=== PATIENT | male | born 1955 | race Caucasian/White ===

== ENCOUNTER 2019-12-13 19:57 | Inpatient (IN) | payer SELFPAY ==
[~2019-12-13] VITALS: Ht 185.4 cm; Wt 72.7 kg
[2019-12-13 20:43] LABS: BASO % 0 % (0-3); EOS # 0.1 x10^3/uL (0.0-0.7); EOS % 1 % (0-3); HEMATOCRIT 33.4 % (39.0-53.0); HEMOGLOBIN 11.6 g/dL (13.0-17.5); LYMPH # 0.9 x10^3/uL (1.0-4.8); LYMPH % 11 % (24-48); MEAN CORPUSCULAR HEMOGLOBIN 32 pg (25-35); MEAN CORPUSCULAR HGB CONC 35 g/dL (31-37); MEAN CORPUSCULAR VOLUME 92 fL (79-100); MONO # 0.8 x10^3/uL (0.0-1.1); MONO % 10 % (0-9); NEUT # 6.5 x10^3/uL (1.8-7.7); NEUT % 78 % (31-73); PLATELET COUNT 389 x10^3/uL (140-400); RED BLOOD COUNT 3.62 x10^6/uL (4.30-5.70); RED CELL DISTRIBUTION WIDTH 11.9 % (11.5-14.5); WHITE BLOOD COUNT 8.3 x10^3/uL (4.0-11.0)
[2019-12-13] MEDS ORDERED: IPRATRPIUM/ALBUTEROL 0.5/2.5MG 3 ML NEBU. NEB ONE (21:00)
[2019-12-13 21:01] LABS: ALBUMIN 2.4 g/dL (3.4-5.0); ALBUMIN/GLOBULIN RATIO 0.6 (1.0-1.7); CALCIUM 8.3 mg/dL (8.5-10.1); CREATININE 1.1 mg/dL (0.7-1.3); GFR 67.6; TOTAL BILIRUBIN 0.4 mg/dL (0.2-1.0); TOTAL PROTEIN 6.6 g/dL (6.4-8.2)
[2019-12-13 21:03] LABS: POTASSIUM 2.9 mmol/L (3.5-5.1)
--- NOTE | 2019-12-13 21:05 | RAD ---
PORTABLE CHEST 1V INDICATION: Dyspnea. COMPARISON STUDY: None. FINDINGS: Lungs: Normal lung volume. Patchy bilateral consolidation. The tracheobronchial tree and hilar structures are normal. Pleura: No pleural effusion or pneumothorax. Heart and Mediastinum: The cardiomediastinal silhouette is normal. Mild tortuosity of the thoracic aorta. IMPRESSION: Patchy bilateral consolidations, concerning for an infectious/inflammatory process or edema. Electronically signed by: Vipul Chaparro MD (12/13/2019 9:02 PM) [facility]
--- NOTE | 2019-12-13 21:14 | PHYS DOC ---
Past Medical History Past Medical History: No Pertinent History Past Surgical History: No Surgical History Smoking Status: Never Smoker Alcohol Use: None General Adult EDM: Chief Complaint: SHORTNESS OF BREATH HPI: HPI: Patient is a 64 year old male who presents via EMS with reports of shortness of breath. Patient was just released from [facility] yesterday after serving a sentence. On December 06, patient tested positive for COVID-19. Patient states that over the last 24 hours shortness of breath has been getting worse. He states that he has been following his oxygen saturations at home and they had dropped into the upper 80s. EMS reports an O2 sat of 91% on room air upon their arrival. [] Review of Systems: Review of Systems: Constitutional: Denies fever or chills. [] Respiratory: Positive cough and shortness of breath. [] Cardiovascular: Denies chest pain or edema. [] GI: Denies abdominal pain, nausea, vomiting or diarrhea. [] Neurologic: Denies headache, focal weakness or sensory changes. [] A full 10 point review of systems has been reviewed and is otherwise negative. Heart Score: Risk Factors: Risk Factors: DM, Current or recent (<one month) smoker, HTN, HLP, family history of CAD, obesity. Risk Scores: Score 0 - 3: 2.5% MACE over next 6 weeks - Discharge Home Score 4 - 6: 20.3% MACE over next 6 weeks - Admit for Clinical Observation Score 7 - 10: 72.7% MACE over next 6 weeks - Early Invasive Strategies Current Medications: Current Medications Medications (Trade) Dose Ordered Sig/Eduardo Start Time Stop Time Status Last Admin Dose Admin Albuterol/ Ipratropium (Duoneb) 3 ml 1X ONCE 12/13/19 21:00 12/13/19 21:01 DC Allergies: Allergies: Allergies Coded Allergies Type Severity Reaction Last Updated Verified No Known Drug Allergies 12/13/19 No Physical Exam: PE: Constitutional: Well developed, well nourished, no acute distress, non-toxic appearance. [] HENT: Normocephalic, atraumatic, bilateral external ears normal, oropharynx moist, no oral exudates, nose normal. [] Eyes: PERRLA, EOMI, conjunctiva normal, no discharge. [] Neck: Normal range of motion, no tenderness, supple. No stridor is noted. [] Cardiovascular: Regular rate and rhythm [] Lungs & Thorax: Bilateral breath sounds clear to auscultation. No wheezes or rhonchi. [] Abdomen: Bowel sounds normal, soft, no tenderness, no masses, no pulsatile masses. [] Skin: Warm, dry, no erythema, no rash. [] Extremities: No tenderness, no cyanosis, no clubbing, ROM intact, no edema. [] Current Patient Data: Labs: Laboratory Tests Test 12/13/19 20:20 White Blood Count 8.3 x10^3/uL (4.0-11.0) Red Blood Count 3.62 x10^6/uL (4.30-5.70) L Hemoglobin 11.6 g/dL (13.0-17.5) L Hematocrit 33.4 % (39.0-53.0) L Mean Corpuscular Volume 92 fL (79-100) Mean Corpuscular Hemoglobin 32 pg (25-35) Mean Corpuscular Hemoglobin Concent 35 g/dL (31-37) Red Cell Distribution Width 11.9 % (11.5-14.5) Platelet Count 389 x10^3/uL (140-400) Neutrophils (%) (Auto) 78 % (31-73) H Lymphocytes (%) (Auto) 11 % (24-48) L Monocytes (%) (Auto) 10 % (0-9) H Eosinophils (%) (Auto) 1 % (0-3) Basophils (%) (Auto) 0 % (0-3) Neutrophils # (Auto) 6.5 x10^3/uL (1.8-7.7) Lymphocytes # (Auto) 0.9 x10^3/uL (1.0-4.8) L Monocytes # (Auto) 0.8 x10^3/uL (0.0-1.1) Eosinophils # (Auto) 0.1 x10^3/uL (0.0-0.7) Basophils # (Auto) 0.0 x10^3/uL (0.0-0.2) Sodium Level 139 mmol/L (136-145) Potassium Level 2.9 mmol/L (3.5-5.1) *L Chloride Level 101 mmol/L (98-107) Carbon Dioxide Level 26 mmol/L (21-32) Anion Gap 12 (6-14) Blood Urea Nitrogen 14 mg/dL (8-26) Creatinine 1.1 mg/dL (0.7-1.3) Estimated GFR (Cockcroft-Gault) 67.6 BUN/Creatinine Ratio 13 (6-20) Glucose Level 120 mg/dL (70-99) H Calcium Level 8.3 mg/dL (8.5-10.1) L Total Bilirubin 0.4 mg/dL (0.2-1.0) Aspartate Amino Transferase (AST) 69 U/L (15-37) H Alanine Aminotransferase (ALT) 61 U/L (16-63) Alkaline Phosphatase 82 U/L (46-116) Troponin I Quantitative < 0.017 ng/mL (0.000-0.055) AI-Yvg-H-Type Natriuretic Peptide 887 pg/mL (0-124) H Total Protein 6.6 g/dL (6.4-8.2) Albumin 2.4 g/dL (3.4-5.0) L Albumin/Globulin Ratio 0.6 (1.0-1.7) L Laboratory Tests 12/13/19 20:20 Laboratory Tests 12/13/19 20:20 Vital Signs: Vital Signs Date Time Temp Pulse Resp B/P (MAP) Pulse Ox O2 Delivery O2 Flow Rate FiO2 12/13/19 20:23 99.8 104 17 105/96 (99) 96 Nasal Cannula 2.0 99.8 EKG: EKG: [] Radiology/Procedures: Radiology/Procedures: [] Impression: PROCEDURE: PORTABLE CHEST 1V PORTABLE CHEST 1V INDICATION: Dyspnea. COMPARISON STUDY: None. FINDINGS: Lungs: Normal lung volume. Patchy bilateral consolidation. The tracheobronchial tree and hilar structures are normal. Pleura: No pleural effusion or pneumothorax. Heart and Mediastinum: The cardiomediastinal silhouette is normal. Mild tortuosity of the thoracic aorta. IMPRESSION: Patchy bilateral consolidations, concerning for an infectious/inflammatory process or edema. Electronically signed by: Vipul Chaparro MD (12/13/2019 9:02 PM) [facility] Course & Med Decision Making: Course & Med Decision Making Pertinent Labs and Imaging studies reviewed. (See chart for details) [] Dragon Disclaimer: Dragon Disclaimer: This electronic medical record was generated, in whole or in part, using a voice recognition dictation system. Departure Departure Impression: Primary Impression: Pneumonia Qualified Codes: J18.9 - Pneumonia, unspecified organism Disposition: ADMITTED INPATIENT Admitting Physician: PROMISE Condition: IMPROVED UVALDO RUSSELL Jr. DO December 13, 2019 21:14
[2019-12-13 21:38] LABS: BILIRUBIN,URINE NEGATIVE (NEG); CLARITY,URINE CLEAR; COLOR,URINE YELLOW; NITRITE,URINE NEGATIVE (NEG); PROTEIN,URINE 100 mg/dL (NEG-TRACE); UROBILINOGEN,URINE 0.2 mg/dL (0.2 mg/dL)
[2019-12-13 21:40] LABS: AMORPHOUS SEDIMENT,UR PRESENT /HPF; BACTERIA,URINE 0 /HPF (0-FEW); SQUAMOUS EPITHELIAL CELL,UR FEW /LPF
[2019-12-13] MEDS ORDERED: POTASSIUM CHLORIDE 20 MEQ TABLET.ER. PO ONE (22:00)
[2019-12-13] MEDS ORDERED: MORPHINE SULFATE 2 MG/ML VIAL. IV PRN (22:15)
[2019-12-13] MEDS ORDERED: ONDANSETRON PF 4 MG/2 ML VIAL. IV PRN (22:15)
[2019-12-13] MEDS ORDERED: cefTRIAXone IV Push 1 GM VIAL. IVP ONE (22:30)
[2019-12-13] MEDS ORDERED: AZITHROMYCIN 250 MG TABLET. PO ONE (22:30)
[2019-12-14] VITALS (7 sets, daily range): BP systolic 143–161; BP diastolic 78–97
[2019-12-14 04:48] LABS: BASO % 0 % (0-3); EOS # 0.1 x10^3/uL (0.0-0.7); EOS % 1 % (0-3); HEMATOCRIT 32.7 % (39.0-53.0); HEMOGLOBIN 11.4 g/dL (13.0-17.5); LYMPH # 0.8 x10^3/uL (1.0-4.8); LYMPH % 11 % (24-48); MEAN CORPUSCULAR HEMOGLOBIN 32 pg (25-35); MEAN CORPUSCULAR HGB CONC 35 g/dL (31-37); MEAN CORPUSCULAR VOLUME 92 fL (79-100); MONO # 0.7 x10^3/uL (0.0-1.1); MONO % 10 % (0-9); NEUT # 5.4 x10^3/uL (1.8-7.7); NEUT % 78 % (31-73); PLATELET COUNT 365 x10^3/uL (140-400); RED BLOOD COUNT 3.57 x10^6/uL (4.30-5.70); RED CELL DISTRIBUTION WIDTH 11.9 % (11.5-14.5); WHITE BLOOD COUNT 6.9 x10^3/uL (4.0-11.0)
[2019-12-14 05:01] LABS: CALCIUM 7.8 mg/dL (8.5-10.1); CREATININE 1.1 mg/dL (0.7-1.3); GFR 67.6; POTASSIUM 3.4 mmol/L (3.5-5.1)
[2019-12-14] MEDS: ACETAMINOPHEN 325 MG TABLET. PO PRN ×2 (07:55→16:27)
[2019-12-14] MEDS ORDERED: POTASSIUM CHLORIDE 20 MEQ TABLET.ER. PO ONE (09:15)
[2019-12-14] MEDS ORDERED: MAGNESIUM SULFATE 2GM 50 ML IV ONE (09:30)
[2019-12-14] MEDS: AZITHROMYCIN 250 MG TABLET. PO SCH (10:09)
[2019-12-14] MEDS: ASCORBIC ACID 500 MG TABLET PO SCH (10:09)
[2019-12-14] MEDS: CHOLECALCIFEROL (VITAMIN D3) 5,000 UNIT CAPSULE PO SCH (10:09)
[2019-12-14] MEDS: ZINC SULFATE 220 MG CAPSULE. PO SCH (10:09)
--- NOTE | 2019-12-14 14:39 | PDOC1 ---
History and Physical Date of Admission Date of Admission DATE: 12/14/19 TIME: 14:35 Source Source: Chart review, Patient History of Present Illness History of Present Illness Mr. Sims, is a 64 year old male admit for hypoxia and came by ambulance to ER for acutely worsening shortness of breath. Patient was just released from [facility] yesterday after serving a sentence, he had been having symptoms for almost 2 weeks, was diagnosed with COVID-19 on December 06, at the [facility], sent home [place], then shortness of breath was markely getting worse. He states that he has been following his oxygen saturations at home and they had dropped into the upper 80s. he was unable to care for himself, had marked dyspnea and weakness. Past Medical History Cardiovascular: No pertinent hx Pulmonary: No pertinent hx GI: No pertinent hx Hepatobiliary: No pertinent hx Psych: No pertinent hx Past Surgical History Past Surgical History: No pertinent history Family History Family History: No Significant Social History Smoke: No ALCOHOL: none Current Problem List Problem List Problems Medical Problems: (1) Pneumonia Status: Acute Current Medications Current Medications Current Medications Albuterol/ Ipratropium (Duoneb) 3 ml 1X ONCE NEB ; Start 12/13/19 at 21:00; Stop 12/13/19 at 21:01; Status DC Potassium Chloride (Klor-Con) 40 meq 1X ONCE PO Last administered on 12/13/19at 22:29; Start 12/13/19 at 22:00; Stop 12/13/19 at 22:01; Status DC Ceftriaxone Sodium (Rocephin) 1 gm 1X ONCE IVP Last administered on 12/13/19at 22:29; Start 12/13/19 at 22:30; Stop 12/13/19 at 22:31; Status DC Azithromycin (Zithromax) 500 mg 1X ONCE PO Last administered on 12/13/19at 22:29; Start 12/13/19 at 22:30; Stop 12/13/19 at 22:31; Status DC Ondansetron HCl (Zofran) 4 mg PRN Q8HRS PRN IV NAUSEA/VOMITING 1ST CHOICE; Start 12/13/19 at 22:15; Stop 12/14/19 at 22:14 Morphine Sulfate (Morphine Sulfate) 2 mg PRN Q2HR PRN IV SEVERE PAIN 7-10; Start 12/13/19 at 22:15; Stop 12/14/19 at 22:14 Acetaminophen (Tylenol) 650 mg PRN Q4HRS PRN PO FEVER > 100.3'F Last administered on 12/14/19at 07:55; Start 12/13/19 at 22:15; Stop 12/14/19 at 22:14 Potassium Chloride (Klor-Con) 40 meq 1X ONCE PO Last administered on 12/14/19at 10:10; Start 12/14/19 at 09:15; Stop 12/14/19 at 09:29; Status DC Ascorbic Acid (Vitamin C) 500 mg DAILY PO Last administered on 12/14/19at 10:09; Start 12/14/19 at 09:15 Zinc Sulfate (Orazinc) 220 mg DAILY PO Last administered on 12/14/19at 10:09; Start 12/14/19 at 09:15 Vitamin D (Vitamin D3) 5,000 unit DAILY PO Last administered on 12/14/19at 10:09; Start 12/14/19 at 09:30 Azithromycin (Zithromax) 250 mg DAILY PO Last administered on 12/14/19at 10:09; Start 12/14/19 at 10:00 Magnesium Sulfate 50 ml @ 25 mls/hr 1X ONCE IV Last administered on 12/14/19at 10:13; Start 12/14/19 at 09:30; Stop 12/14/19 at 11:35; Status DC Enoxaparin Sodium (Lovenox Per Pharmacy Prophylaxis Dosing) 1 each PRN DAILY PRN MC SEE COMMENTS; Start 12/14/19 at 14:15 Enoxaparin Sodium (Lovenox 40mg Syringe) 40 mg Q24H SQ ; Start 12/14/19 at 15:00 Active Scripts Active Reported No Known Medications Prior To Admisstion (Info) Each 1 Each MC 1X Allergies Allergies: Coded Allergies: No Known Drug Allergies (Unverified , 12/13/19) PT DENIES ALLERGIES ROS General: YES: Chills, Fatigue, Malaise; No: Night Sweats, Appetite, Other PSYCHOLOGICAL ROS: YES: Anxiety, Sleep disturbances Eyes: No Blurry vision, No Decreased vision, No Double vision, No Dry eyes, No Excessive tearing, No Eye Pain, No Itchy Eyes, No Loss of vision, No Photophobia, No Scotomata, No Uses contacts, No Uses glasses, No Other HEENT: YES: [place]acaches Respiratory: YES: Cough, Shortness of breath, SOB with excertion Cardiovascular: No Chest Pain, No Palpitations, No Orthopnea, No Paroxysmal Noc. Dyspnea, No Edema, No Lt Headedness, No Other Gastrointestinal: Yes Nausea; No Vomiting, No Abdominal Pain, No Diarrhea, No Constipation, No Melena, No Hematochezia, No Other Genitourinary: No Dysuria, No Frequency, No Incontinence, No Hematuria, No Retention, No Discharge, No Urgency, No Pain, No Flank Pain, No Other, No , No , No , No , No , No , No Musculoskeletal: Yes Joint Stiffness, Yes Muscular Weakness Neurological: No Behavorial Changes, No Bowel/Bladder ControlChng, No Confusion, No Dizziness, No Gait Disturbance, No Headaches, No Impaired Coord/balance, No Memory Loss, No Numbness/Tingling, No Seizures, No Speech Problems, No Tremors, No Visual Changes, No Weakness, No Other Skin: Yes Dry Skin; No Eczema, No Hair Changes, No Lumps, No Mole Changes, No Mottling, No Nail Changes, No Pruritus, No Rash, No Skin Lesion Changes, No Other, No Acne Physical Exam General: Alert, Oriented X3, No acute distress HEENT: Atraumatic, PERRLA, EOMI, Mucous membr. moist/pink Lungs: Normal air movement Heart: no gallops, no murmurs Extremities: No edema, Normal pulses Neuro: Normal tone Psych/Mental Status: Mental status NL, Mood NL Vitals Vitals Vital Signs Date Time Temp Pulse Resp B/P (MAP) Pulse Ox O2 Delivery O2 Flow Rate FiO2 12/14/19 10:39 98.1 103 20 146/86 (106) 92 Nasal Cannula 2.0 98.1 Labs Labs Laboratory Tests Test 12/13/19 20:20 12/13/19 21:30 12/14/19 04:30 White Blood Count 8.3 x10^3/uL (4.0-11.0) 6.9 x10^3/uL (4.0-11.0) Red Blood Count 3.62 x10^6/uL (4.30-5.70) 3.57 x10^6/uL (4.30-5.70) Hemoglobin 11.6 g/dL (13.0-17.5) 11.4 g/dL (13.0-17.5) Hematocrit 33.4 % (39.0-53.0) 32.7 % (39.0-53.0) Mean Corpuscular Volume 92 fL (79-100) 92 fL (79-100) Mean Corpuscular Hemoglobin 32 pg (25-35) 32 pg (25-35) Mean Corpuscular Hemoglobin Concent 35 g/dL (31-37) 35 g/dL (31-37) Red Cell Distribution Width 11.9 % (11.5-14.5) 11.9 % (11.5-14.5) Platelet Count 389 x10^3/uL (140-400) 365 x10^3/uL (140-400) Neutrophils (%) (Auto) 78 % (31-73) 78 % (31-73) Lymphocytes (%) (Auto) 11 % (24-48) 11 % (24-48) Monocytes (%) (Auto) 10 % (0-9) 10 % (0-9) Eosinophils (%) (Auto) 1 % (0-3) 1 % (0-3) Basophils (%) (Auto) 0 % (0-3) 0 % (0-3) Neutrophils # (Auto) 6.5 x10^3/uL (1.8-7.7) 5.4 x10^3/uL (1.8-7.7) Lymphocytes # (Auto) 0.9 x10^3/uL (1.0-4.8) 0.8 x10^3/uL (1.0-4.8) Monocytes # (Auto) 0.8 x10^3/uL (0.0-1.1) 0.7 x10^3/uL (0.0-1.1) Eosinophils # (Auto) 0.1 x10^3/uL (0.0-0.7) 0.1 x10^3/uL (0.0-0.7) Basophils # (Auto) 0.0 x10^3/uL (0.0-0.2) 0.0 x10^3/uL (0.0-0.2) Sodium Level 139 mmol/L (136-145) 141 mmol/L (136-145) Potassium Level 2.9 mmol/L (3.5-5.1) 3.4 mmol/L (3.5-5.1) Chloride Level 101 mmol/L (98-107) 105 mmol/L (98-107) Carbon Dioxide Level 26 mmol/L (21-32) 28 mmol/L (21-32) Anion Gap 12 (6-14) 8 (6-14) Blood Urea Nitrogen 14 mg/dL (8-26) 11 mg/dL (8-26) Creatinine 1.1 mg/dL (0.7-1.3) 1.1 mg/dL (0.7-1.3) Estimated GFR (Cockcroft-Gault) 67.6 67.6 BUN/Creatinine Ratio 13 (6-20) Glucose Level 120 mg/dL (70-99) 97 mg/dL (70-99) Calcium Level 8.3 mg/dL (8.5-10.1) 7.8 mg/dL (8.5-10.1) Total Bilirubin 0.4 mg/dL (0.2-1.0) Aspartate Amino Transf (AST/SGOT) 69 U/L (15-37) Alanine Aminotransferase (ALT/SGPT) 61 U/L (16-63) Alkaline Phosphatase 82 U/L (46-116) Troponin I Quantitative < 0.017 ng/mL (0.000-0.055) IF-Wgt-L-Type Natriuretic Peptide 887 pg/mL (0-124) Total Protein 6.6 g/dL (6.4-8.2) Albumin 2.4 g/dL (3.4-5.0) Albumin/Globulin Ratio 0.6 (1.0-1.7) Urine Collection Type Unknown Urine Color Yellow Urine Clarity Clear Urine pH 6.0 (<5.0-8.0) Urine Specific [place] 1.010 (1.000-1.030) Urine Protein 100 mg/dL (NEG-TRACE) Urine Glucose (UA) Negative mg/dL (NEG) Urine Ketones (Stick) Negative mg/dL (NEG) Urine Blood Small (NEG) Urine Nitrite Negative (NEG) Urine Bilirubin Negative (NEG) Urine Urobilinogen Dipstick 0.2 mg/dL (0.2 mg/dL) Urine Leukocyte Esterase Negative (NEG) Urine RBC 3-5 /HPF (0-2) Urine WBC 1-4 /HPF (0-4) Urine Squamous Epithelial Cells Few /LPF Urine Amorphous Sediment Present /HPF Urine Bacteria 0 /HPF (0-FEW) Urine Mucus Mod /LPF Laboratory Tests Test 12/13/19 20:20 12/13/19 21:30 12/14/19 04:30 White Blood Count 8.3 x10^3/uL (4.0-11.0) 6.9 x10^3/uL (4.0-11.0) Red Blood Count 3.62 x10^6/uL (4.30-5.70) 3.57 x10^6/uL (4.30-5.70) Hemoglobin 11.6 g/dL (13.0-17.5) 11.4 g/dL (13.0-17.5) Hematocrit 33.4 % (39.0-53.0) 32.7 % (39.0-53.0) Mean Corpuscular Volume 92 fL (79-100) 92 fL (79-100) Mean Corpuscular Hemoglobin 32 pg (25-35) 32 pg (25-35) Mean Corpuscular Hemoglobin Concent 35 g/dL (31-37) 35 g/dL (31-37) Red Cell Distribution Width 11.9 % (11.5-14.5) 11.9 % (11.5-14.5) Platelet Count 389 x10^3/uL (140-400) 365 x10^3/uL (140-400) Neutrophils (%) (Auto) 78 % (31-73) 78 % (31-73) Lymphocytes (%) (Auto) 11 % (24-48) 11 % (24-48) Monocytes (%) (Auto) 10 % (0-9) 10 % (0-9) Eosinophils (%) (Auto) 1 % (0-3) 1 % (0-3) Basophils (%) (Auto) 0 % (0-3) 0 % (0-3) Neutrophils # (Auto) 6.5 x10^3/uL (1.8-7.7) 5.4 x10^3/uL (1.8-7.7) Lymphocytes # (Auto) 0.9 x10^3/uL (1.0-4.8) 0.8 x10^3/uL (1.0-4.8) Monocytes # (Auto) 0.8 x10^3/uL (0.0-1.1) 0.7 x10^3/uL (0.0-1.1) Eosinophils # (Auto) 0.1 x10^3/uL (0.0-0.7) 0.1 x10^3/uL (0.0-0.7) Basophils # (Auto) 0.0 x10^3/uL (0.0-0.2) 0.0 x10^3/uL (0.0-0.2) Sodium Level 139 mmol/L (136-145) 141 mmol/L (136-145) Potassium Level 2.9 mmol/L (3.5-5.1) 3.4 mmol/L (3.5-5.1) Chloride Level 101 mmol/L (98-107) 105 mmol/L (98-107) Carbon Dioxide Level 26 mmol/L (21-32) 28 mmol/L (21-32) Anion Gap 12 (6-14) 8 (6-14) Blood Urea Nitrogen 14 mg/dL (8-26) 11 mg/dL (8-26) Creatinine 1.1 mg/dL (0.7-1.3) 1.1 mg/dL (0.7-1.3) Estimated GFR (Cockcroft-Gault) 67.6 67.6 BUN/Creatinine Ratio 13 (6-20) Glucose Level 120 mg/dL (70-99) 97 mg/dL (70-99) Calcium Level 8.3 mg/dL (8.5-10.1) 7.8 mg/dL (8.5-10.1) Total Bilirubin 0.4 mg/dL (0.2-1.0) Aspartate Amino Transf (AST/SGOT) 69 U/L (15-37) Alanine Aminotransferase (ALT/SGPT) 61 U/L (16-63) Alkaline Phosphatase 82 U/L (46-116) Troponin I Quantitative < 0.017 ng/mL (0.000-0.055) MV-Jsc-X-Type Natriuretic Peptide 887 pg/mL (0-124) Total Protein 6.6 g/dL (6.4-8.2) Albumin 2.4 g/dL (3.4-5.0) Albumin/Globulin Ratio 0.6 (1.0-1.7) Urine Collection Type Unknown Urine Color Yellow Urine Clarity Clear Urine pH 6.0 (<5.0-8.0) Urine Specific [place] 1.010 (1.000-1.030) Urine Protein 100 mg/dL (NEG-TRACE) Urine Glucose (UA) Negative mg/dL (NEG) Urine Ketones (Stick) Negative mg/dL (NEG) Urine Blood Small (NEG) Urine Nitrite Negative (NEG) Urine Bilirubin Negative (NEG) Urine Urobilinogen Dipstick 0.2 mg/dL (0.2 mg/dL) Urine Leukocyte Esterase Negative (NEG) Urine RBC 3-5 /HPF (0-2) Urine WBC 1-4 /HPF (0-4) Urine Squamous Epithelial Cells Few /LPF Urine Amorphous Sediment Present /HPF Urine Bacteria 0 /HPF (0-FEW) Urine Mucus Mod /LPF VTE Prophylaxis Ordered VTE Prophylaxis Devices: No VTE Pharmacological Prophylaxi: Yes Assessment/Plan Assessment/Plan acute hypoxia sepsis pneumonia, cont abx started in ER, COVID-19 confirmed positive, aggresive anticoag. vit c, d, zinc, severe malnutrition due to acute illness, admit BENNIE CABALLERO MD December 14, 2019 14:39
[2019-12-14] MEDS ORDERED: ENOXAPARIN 40 MG/0.4 ML SYRINGE. SQ SCH (15:00)
[2019-12-15 03:45] VITALS: BP 144/84
[2019-12-15] MEDS: ACETAMINOPHEN 325 MG TABLET. PO PRN ×2 (06:00→20:59)
[2019-12-15 07:00] VITALS: BP 147/96
--- NOTE | 2019-12-15 07:05 | EKG ---
[facility] [address] [place] [address] Test Date: 2019-12-13 Test Time: 20:19:39 Pat Name: SADAF JONES Department: Room: [facility] Gender: M Ticket Sorter: : 1955 Requested By: UVALDO RUSSELL Order Number: [id number] Reading MD: Shravan Melissa Measurements Intervals Leslie Rate: 104 P: -37 GA: 130 QRS: 39 QRSD: 76 T: 26 QT: 344 QTc: 459 Interpretive Statements SINUS TACHYCARDIA Electronically Signed On 12-15-2019 7:52:23 CDT by Shravan Melissa
--- NOTE | 2019-12-15 09:42 | PDOC ---
PROGRESS NOTES Chief Complaint Chief Complaint A/P: Acute hypoxia Sepsis Pneumonia, cont abx started in ER, azithromycin COVID-19 confirmed positive, aggresive anticoag. vit c, d, zinc, severe malnutrition due to acute illness, History of Present Illness History of Present Illness Mr. Sims, is a 64 yo M who was released from [facility] 12/12/2019 after serving an 18.5 year sentence and called EMS for hypoxia and came by ambulance to ER for acutely worsening shortness of breath. He had been having symptoms of shortness of breath, cough, fevers for almost 2 weeks, was diagnosed with COVID-19 on December 06, at the nursing home after testing was administered on 12/05/2019. He states that he has been following his oxygen saturations at home and they had dropped into the 80s. He was unable to care for himself, had marked dyspnea and weakness. Still feeling weak today. Now with O2 saturations 92% on room air. Still with cough and weakness. I have discussed with him and his daughter over the phone they feel uncomfortable going home due to his inability to care for himself. Vitals Vitals Vital Signs Date Time Temp Pulse Resp B/P (MAP) Pulse Ox O2 Delivery O2 Flow Rate FiO2 12/15/19 07:00 97.2 88 17 147/96 (113) 95 Nasal Cannula 2.0 97.2 Physical Exam General: Alert, Oriented X3, No acute distress Extremities: No edema, Normal pulses Assessment and Plan Assessmemt and Plan Problems Medical Problems: (1) Pneumonia Status: Acute Comment Review of Relevant I have reviewed the following items pankaj (where applicable) has been applied. Labs Laboratory Tests Test 12/13/19 20:20 12/13/19 21:30 12/14/19 04:30 White Blood Count 8.3 x10^3/uL (4.0-11.0) 6.9 x10^3/uL (4.0-11.0) Red Blood Count 3.62 x10^6/uL (4.30-5.70) 3.57 x10^6/uL (4.30-5.70) Hemoglobin 11.6 g/dL (13.0-17.5) 11.4 g/dL (13.0-17.5) Hematocrit 33.4 % (39.0-53.0) 32.7 % (39.0-53.0) Mean Corpuscular Volume 92 fL (79-100) 92 fL (79-100) Mean Corpuscular Hemoglobin 32 pg (25-35) 32 pg (25-35) Mean Corpuscular Hemoglobin Concent 35 g/dL (31-37) 35 g/dL (31-37) Red Cell Distribution Width 11.9 % (11.5-14.5) 11.9 % (11.5-14.5) Platelet Count 389 x10^3/uL (140-400) 365 x10^3/uL (140-400) Neutrophils (%) (Auto) 78 % (31-73) 78 % (31-73) Lymphocytes (%) (Auto) 11 % (24-48) 11 % (24-48) Monocytes (%) (Auto) 10 % (0-9) 10 % (0-9) Eosinophils (%) (Auto) 1 % (0-3) 1 % (0-3) Basophils (%) (Auto) 0 % (0-3) 0 % (0-3) Neutrophils # (Auto) 6.5 x10^3/uL (1.8-7.7) 5.4 x10^3/uL (1.8-7.7) Lymphocytes # (Auto) 0.9 x10^3/uL (1.0-4.8) 0.8 x10^3/uL (1.0-4.8) Monocytes # (Auto) 0.8 x10^3/uL (0.0-1.1) 0.7 x10^3/uL (0.0-1.1) Eosinophils # (Auto) 0.1 x10^3/uL (0.0-0.7) 0.1 x10^3/uL (0.0-0.7) Basophils # (Auto) 0.0 x10^3/uL (0.0-0.2) 0.0 x10^3/uL (0.0-0.2) Sodium Level 139 mmol/L (136-145) 141 mmol/L (136-145) Potassium Level 2.9 mmol/L (3.5-5.1) 3.4 mmol/L (3.5-5.1) Chloride Level 101 mmol/L (98-107) 105 mmol/L (98-107) Carbon Dioxide Level 26 mmol/L (21-32) 28 mmol/L (21-32) Anion Gap 12 (6-14) 8 (6-14) Blood Urea Nitrogen 14 mg/dL (8-26) 11 mg/dL (8-26) Creatinine 1.1 mg/dL (0.7-1.3) 1.1 mg/dL (0.7-1.3) Estimated GFR (Cockcroft-Gault) 67.6 67.6 BUN/Creatinine Ratio 13 (6-20) Glucose Level 120 mg/dL (70-99) 97 mg/dL (70-99) Calcium Level 8.3 mg/dL (8.5-10.1) 7.8 mg/dL (8.5-10.1) Total Bilirubin 0.4 mg/dL (0.2-1.0) Aspartate Amino Transf (AST/SGOT) 69 U/L (15-37) Alanine Aminotransferase (ALT/SGPT) 61 U/L (16-63) Alkaline Phosphatase 82 U/L (46-116) Troponin I Quantitative < 0.017 ng/mL (0.000-0.055) VV-Ttn-L-Type Natriuretic Peptide 887 pg/mL (0-124) Total Protein 6.6 g/dL (6.4-8.2) Albumin 2.4 g/dL (3.4-5.0) Albumin/Globulin Ratio 0.6 (1.0-1.7) Urine Collection Type Unknown Urine Color Yellow Urine Clarity Clear Urine pH 6.0 (<5.0-8.0) Urine Specific [place] 1.010 (1.000-1.030) Urine Protein 100 mg/dL (NEG-TRACE) Urine Glucose (UA) Negative mg/dL (NEG) Urine Ketones (Stick) Negative mg/dL (NEG) Urine Blood Small (NEG) Urine Nitrite Negative (NEG) Urine Bilirubin Negative (NEG) Urine Urobilinogen Dipstick 0.2 mg/dL (0.2 mg/dL) Urine Leukocyte Esterase Negative (NEG) Urine RBC 3-5 /HPF (0-2) Urine WBC 1-4 /HPF (0-4) Urine Squamous Epithelial Cells Few /LPF Urine Amorphous Sediment Present /HPF Urine Bacteria 0 /HPF (0-FEW) Urine Mucus Mod /LPF Medications Current Medications Albuterol/ Ipratropium (Duoneb) 3 ml 1X ONCE NEB ; Start 12/13/19 at 21:00; Stop 12/13/19 at 21:01; Status DC Potassium Chloride (Klor-Con) 40 meq 1X ONCE PO Last administered on 12/13/19at 22:29; Start 12/13/19 at 22:00; Stop 12/13/19 at 22:01; Status DC Ceftriaxone Sodium (Rocephin) 1 gm 1X ONCE IVP Last administered on 12/13/19at 22:29; Start 12/13/19 at 22:30; Stop 12/13/19 at 22:31; Status DC Azithromycin (Zithromax) 500 mg 1X ONCE PO Last administered on 12/13/19at 22:29; Start 12/13/19 at 22:30; Stop 12/13/19 at 22:31; Status DC Ondansetron HCl (Zofran) 4 mg PRN Q8HRS PRN IV NAUSEA/VOMITING 1ST CHOICE; Start 12/13/19 at 22:15; Stop 12/14/19 at 22:14; Status DC Morphine Sulfate (Morphine Sulfate) 2 mg PRN Q2HR PRN IV SEVERE PAIN 7-10; Start 12/13/19 at 22:15; Stop 12/14/19 at 22:14; Status DC Acetaminophen (Tylenol) 650 mg PRN Q4HRS PRN PO FEVER > 100.3'F Last administered on 12/14/19at 16:27; Start 12/13/19 at 22:15; Stop 12/14/19 at 22:15; Status DC Potassium Chloride (Klor-Con) 40 meq 1X ONCE PO Last administered on 12/14/19at 10:10; Start 12/14/19 at 09:15; Stop 12/14/19 at 09:29; Status DC Ascorbic Acid (Vitamin C) 500 mg DAILY PO Last administered on 12/14/19at 10:09; Start 12/14/19 at 09:15 Zinc Sulfate (Orazinc) 220 mg DAILY PO Last administered on 12/14/19at 10:09; Start 12/14/19 at 09:15 Vitamin D (Vitamin D3) 5,000 unit DAILY PO Last administered on 12/14/19at 10:09; Start 12/14/19 at 09:30 Azithromycin (Zithromax) 250 mg DAILY PO Last administered on 12/14/19at 10:09; Start 12/14/19 at 10:00 Magnesium Sulfate 50 ml @ 25 mls/hr 1X ONCE IV Last administered on 12/14/19at 10:13; Start 12/14/19 at 09:30; Stop 12/14/19 at 11:35; Status DC Enoxaparin Sodium (Lovenox Per Pharmacy Prophylaxis Dosing) 1 each PRN DAILY P RN [facility] SEE COMMENTS; Start 12/14/19 at 14:15 Enoxaparin Sodium (Lovenox 40mg Syringe) 40 mg Q24H SQ Last administered on 12/14/19at 16:04; Start 12/14/19 at 15:00 Acetaminophen (Tylenol) 650 mg PRN Q6HRS PRN PO FEVER > 100.3'F Last administered on 12/15/19at 06:00; Start 12/15/19 at 05:15 Active Scripts Active Reported No Known Medications Prior To Admisstion (Info) Each 1 Each 1X Vitals/I & O Vital Sign - Last 24 Hours 12/14/19 12/14/19 12/14/19 12/14/19 10:39 14:43 16:59 19:30 Temp 98.1 99.0 100.9 100.9 98.1 99.0 100.9 100.9 Pulse 103 125 100 Resp 20 20 20 B/P (MAP) 146/86 (106) 161/78 (105) 160/85 (110) Pulse Ox 92 93 96 O2 Delivery Nasal Cannula Nasal Cannula Nasal Cannula O2 Flow Rate 2.0 2.0 2.0 12/14/19 12/14/19 12/15/19 12/15/19 20:15 23:00 03:45 07:00 Temp 100.1 100.5 97.2 100.1 100.5 97.2 Pulse 96 95 88 Resp 20 20 17 B/P (MAP) 152/83 (106) 144/84 (104) 147/96 (113) Pulse Ox 95 92 95 O2 Delivery Nasal Cannula Nasal Cannula Nasal Cannula Nasal Cannula O2 Flow Rate 2.0 2.0 2.0 2.0 Intake and Output 12/14/19 12/14/19 12/15/19 15:00 23:00 07:00 Intake Total 620 ml Output Total 1450 ml 450 ml 600 ml Balance -1450 ml 170 ml -600 ml TRINH CHARLES MD December 15, 2019 09:42
[2019-12-15] MEDS: ZINC SULFATE 220 MG CAPSULE. PO SCH (09:53)
[2019-12-15] MEDS: AZITHROMYCIN 250 MG TABLET. PO SCH (09:53)
[2019-12-15] MEDS: CHOLECALCIFEROL (VITAMIN D3) 5,000 UNIT CAPSULE PO SCH (09:53)
[2019-12-15] MEDS: ASCORBIC ACID 500 MG TABLET PO SCH (09:53)
[2019-12-15 11:00] VITALS: BP 141/90
--- NOTE | 2019-12-15 14:35 | NUR ---
SS following for discharge planning. SS reviewed pt chart and discussed with pt RN and pt's daughter, Belinda, . Pt was recently discharged from [facility] on 12/12/2019 after 20 years of incarceration. Pt not able to live with daughter in [place], [place] due to her having a child under the age of 18. Pt's daughters helped pt get apartment in [place], [place] at [address]. Pt COVID19 positive and requiring oxygen. Pt is self pay. She reported that pt does not qualify for Medicaid. She reported that Obamacare is $700/ month and pt cannot afford. She reported that she did set up bank account for pt. SS discussed oxygen costs with daughter of $115/month for tubing and concentrator. Daughter agreeable to help with oxygen. Pt's daughter asked SS to inquire about [facility] home health RN to check on pt at home. Pt's daughter reported that pt will need transportation when discharging to home. SS will continue to follow for discharge planning.
[2019-12-15 15:00] VITALS: BP 151/80
[2019-12-15] MEDS: ENOXAPARIN 40 MG/0.4 ML SYRINGE. SQ SCH (17:00)
[2019-12-15 19:00] VITALS: BP 166/90
[2019-12-15] MEDS: LACTOBACILLUS RHAMNOSUS GG 1 CAPSULE. PO SCH (20:59)
[2019-12-15 23:00] VITALS: BP 141/88
[2019-12-16 03:00] VITALS: BP 131/81
[2019-12-16 07:00] VITALS: BP 154/92
[2019-12-16] MEDS: CHOLECALCIFEROL (VITAMIN D3) 5,000 UNIT CAPSULE PO SCH (08:34)
[2019-12-16] MEDS: ZINC SULFATE 220 MG CAPSULE. PO SCH (08:34)
[2019-12-16] MEDS: ASCORBIC ACID 500 MG TABLET PO SCH (08:34)
[2019-12-16] MEDS: LACTOBACILLUS RHAMNOSUS GG 1 CAPSULE. PO SCH (08:35)
[2019-12-16] MEDS: AZITHROMYCIN 250 MG TABLET. PO SCH (08:35)
[2019-12-16] MEDS: ENOXAPARIN 40 MG/0.4 ML SYRINGE. SQ SCH (08:36)
--- NOTE | 2019-12-16 08:51 | PDOC ---
PROGRESS NOTES Chief Complaint Chief Complaint A/P: Acute hypoxia Sepsis Pneumonia, cont abx started in ER, azithromycin COVID-19 confirmed positive, aggresive anticoag. vit c, d, zinc, severe malnutrition due to acute illness, History of Present Illness History of Present Illness Mr. Sims, is a 64 yo M who was released from [facility] 12/12/2019 after serving an 18.5 year sentence and called EMS for hypoxia and came by ambulance to ER for acutely worsening shortness of breath. He had been having symptoms of shortness of breath, cough, fevers for almost 2 weeks, was diagnosed with COVID-19 on December 06, at the half-way after testing was administered on 12/05/2019. He states that he has been following his oxygen saturations at home and they had dropped into the 80s. He was unable to care for himself, had marked dyspnea and weakness. 12/14: Still feeling weak today. Now with O2 saturations 92% on room air. Still with cough and weakness. I have discussed with him and his daughter over the phone they feel uncomfortable going home due to his inability to care for himself. On No O2 overnight. Off O2 for 30 hours. T-max 100.5F at 0345 on 12/14. Overnight 100.1F. Feeling stronger, able to cough. some loose stools after his antibiotic dosing. He wishes to be able to go home. Has a daughter in [place] who will apple picking supervisor his prescriptions. Vitals Vitals Vital Signs Date Time Temp Pulse Resp B/P (MAP) Pulse Ox O2 Delivery O2 Flow Rate FiO2 12/16/19 07:00 98.8 89 18 154/92 (112) 92 Room Air 98.8 12/16/19 03:00 2.0 Physical Exam General: Alert, Oriented X3, No acute distress Extremities: No edema, Normal pulses Assessment and Plan Assessmemt and Plan Problems Medical Problems: (1) Pneumonia Status: Acute Comment Review of Relevant I have reviewed the following items pankaj (where applicable) has been applied. Medications Current Medications Albuterol/ Ipratropium (Duoneb) 3 ml 1X ONCE NEB ; Start 12/13/19 at 21:00; Stop 12/13/19 at 21:01; Status DC Potassium Chloride (Klor-Con) 40 meq 1X ONCE PO Last administered on 12/13/19at 22:29; Start 12/13/19 at 22:00; Stop 12/13/19 at 22:01; Status DC Ceftriaxone Sodium (Rocephin) 1 gm 1X ONCE IVP Last administered on 12/13/19 22:29; Start 12/13/19 at 22:30; Stop 12/13/19 at 22:31; Status DC Azithromycin (Zithromax) 500 mg 1X ONCE PO Last administered on 12/13/19 22:29; Start 12/13/19 at 22:30; Stop 12/13/19 at 22:31; Status DC Ondansetron HCl (Zofran) 4 mg PRN Q8HRS PRN IV NAUSEA/VOMITING 1ST CHOICE; Start 12/13/19 at 22:15; Stop 12/14/19 at 22:14; Status DC Morphine Sulfate (Morphine Sulfate) 2 mg PRN Q2HR PRN IV SEVERE PAIN 7-10; Start 12/13/19 at 22:15; Stop 12/14/19 at 22:14; Status DC Acetaminophen (Tylenol) 650 mg PRN Q4HRS PRN PO FEVER > 100.3'F Last administered on 12/14/19 16:27; Start 12/13/19 at 22:15; Stop 12/14/19 at 22:15; Status DC Potassium Chloride (Klor-Con) 40 meq 1X ONCE PO Last administered on 12/14/19at 10:10; Start 12/14/19 at 09:15; Stop 12/14/19 at 09:29; Status DC Ascorbic Acid (Vitamin C) 500 mg DAILY PO Last administered on 12/16/19 08:34; Start 12/14/19 at 09:15 Zinc Sulfate (Orazinc) 220 mg DAILY PO Last administered on 12/16/19 08:34; Start 12/14/19 at 09:15 Vitamin D (Vitamin D3) 5,000 unit DAILY PO Last administered on 12/16/19 08:34; Start 12/14/19 at 09:30 Azithromycin (Zithromax) 250 mg DAILY PO Last administered on 12/16/19 08:35; Start 12/14/19 at 10:00 Magnesium Sulfate 50 ml @ 25 mls/hr 1X ONCE IV Last administered on 12/14/19at 10:13; Start 12/14/19 at 09:30; Stop 12/14/19 at 11:35; Status DC Enoxaparin Sodium (Lovenox Per Pharmacy Prophylaxis Dosing) 1 each PRN DAILY PRN [facility] SEE COMMENTS; Start 12/14/19 at 14:15 Enoxaparin Sodium (Lovenox 40mg Syringe) 40 mg Q24H SQ Last administered on 12/14/19at 16:04; Start 12/14/19 at 15:00; Stop 12/15/19 at 12:13; Status DC Acetaminophen (Tylenol) 650 mg PRN Q6HRS PRN PO FEVER > 100.3'F Last administered on 12/15/19at 20:59; Start 12/15/19 at 05:15 Enoxaparin Sodium (Lovenox 40mg Syringe) 40 mg BID SQ Last administered on 12/16/19at 08:36; Start 12/15/19 at 16:00 Lactobacillus Rhamnosus (Culturelle) 1 cap BID PO Last administered on 12/16/19at 08:35; Start 12/15/19 at 21:00 Active Scripts Active Reported No Known Medications Prior To Admisstion (Info) Each 1 Each MC 1X Vitals/I & O Vital Sign - Last 24 Hours 12/15/19 12/15/19 12/15/19 12/15/19 11:00 15:00 19:00 20:00 Temp 97.9 100.1 100.1 97.9 100.1 100.1 Pulse 93 104 98 Resp 18 18 20 B/P (MAP) 141/90 (107) 151/80 (103) 166/90 (115) Pulse Ox 94 94 91 O2 Delivery Room Air Room Air Room Air Room Air 12/15/19 12/16/19 12/16/19 23:00 03:00 07:00 Temp 98.0 99.1 98.8 98.0 99.1 98.8 Pulse 78 88 89 Resp 20 20 18 B/P (MAP) 141/88 (105) 131/81 (98) 154/92 (112) Pulse Ox 90 92 92 O2 Delivery Room Air Nasal Cannula Room Air O2 Flow Rate 2.0 Intake and Output 12/15/19 12/15/19 12/16/19 15:00 23:00 07:00 Intake Total 600 ml 800 ml Output Total 300 ml 300 ml 300 ml Balance 300 ml 500 ml -300 ml TRINH CHARLES MD December 16, 2019 08:51
[2019-12-16 11:00] VITALS: BP 143/83
[2019-12-16] MEDS ORDERED: AZIT250T6 PO (13:12)
[2019-12-16] MEDS ORDERED: LACT1CAP19 PO (13:12)
[2019-12-16] MEDS ORDERED: ZINC220C2 PO (13:12)
--- NOTE | 2019-12-16 13:16 | PDOC3 ---
Discharge Summary Visit Information Date of Admission: December 13, 2019 Date of Discharge: December 16, 2019 Admitting Diagnosis: COVID 19 with pneumonia Final Diagnosis Problems Medical Problems: (1) Pneumonia Status: Acute Brief Hospital Course Allergies Allergies Coded Allergies Type Severity Reaction Last Updated Verified No Known Drug Allergies 12/13/19 No Vital Signs Vital Signs Date Time Temp Pulse Resp B/P (MAP) Pulse Ox O2 Delivery O2 Flow Rate FiO2 12/16/19 11:00 98.0 91 18 143/83 (103) 96 Room Air 98.0 12/16/19 03:00 2.0 Brief Hospital Course Mr. Sims, is a 64 yo M who was released from [facility] 12/12/2019 after serving an 18.5 year sentence and called EMS for hypoxia and came by ambulance to ER for acutely worsening shortness of breath. He had been having symptoms of shortness of breath, cough, fevers for almost 2 weeks, was diagnosed with COVID-19 on December 06, at the care home after testing was administered on 12/05/2019. He states that he has been following his oxygen saturations at home and they had dropped into the 80s. He was unable to care for himself, had marked dyspnea and weakness. 12/14: Still feeling weak today. Now with O2 saturations 92% on room air. Still with cough and weakness. I have discussed with him and his daughter over the phone they feel uncomfortable going home due to his inability to care for himself. On No O2 overnight. Off O2 for 30 hours. T-max 100.5F at 0345 on 12/14. Overnight 100.1F. Feeling stronger, able to cough. some loose stools after his antibiotic dosing. He wishes to be able to go home. Has a daughter in [place] who will pickling machine operator his prescriptions. Problem list: Acute hypoxia Sepsis Pneumonia, cont abx started in ER, azithromycin COVID-19 confirmed positive, aggresive anticoag. vit c, d, zinc, severe malnutrition due to acute illness, Greater than 30 minutes spent on d/c home Discharge Information Condition at Discharge: Improved Follow Up: Weeks (1) Disposition/Orders: D/C to Home Scheduled Azithromycin (Azithromycin Tablet) 250 Mg Tablet, 250 MG PO DAILY for COVID 19 for 2 Days, #2 Prescribed by: TRINH CHARLES MD on 12/16/19 1312 Info (No Known Medications Prior To Admisstion) Each, 1 EACH 1X for none, (Reported) Entered as Reported by: KYARA MARIE on 12/14/19156 Last Action: New Order on 12/14/19156 by KYARA MARIE Lactobacillus Rhamnosus Gg (Culturelle) 1 Each Cap.sprink, 1 CAP PO BID for Diarrhea for 30 Days, #60 Prescribed by: TRINH CHARLES MD on 12/16/192 Zinc Sulfate (Orazinc) 220 Mg Capsule, 220 MG PO DAILY for COVID 19 for 30 Days, #30 Prescribed by: TRINH CHARLES MD on 12/16/191311 TRINH CHARLES MD December 16, 2019 13:16
--- NOTE | 2019-12-16 13:51 | SNU/HH DC ---
DISCHARGE WITH HOME HEALTH DISCHARGE INFORMATION: Discharge Date: December 16, 2019 Final Diagnosis: Problems Medical Problems: (1) Pneumonia Status: Acute Condition on Discharge: Stable CODE STATUS: Code Status: Full HOME HEALTH: Face to Face: I certify this patient is under my care and that I, or a nurse practitioner or physician's metal forger's assistant working with me, had a face to face encounter that meets the physician face to face encounter requirements with this patient on 12/16/2019. Medical Complications: Pneumonia, Other (COVID 19) Longterm For: Assess & Educate Safety RN For Eval/Treatment: Yes Pt Meets Homebound Status: Fatigue w/ amb. POST DISCHARGE ORDERS: Activity Instructions for Disc: No restrictions Weight Bearing Status after Di: No restrictions DIET AFTER DISCHARGE: Regular CHECKS AFTER DISCHARGE: Checks after discharge: Check blood press - daily CERTIFICATION STATEMENT: Certification Statement: Certification Statement: Based on the above finding, I certify that this patient is confined to the home and needs intermittent prison care, physical therapy and/or speech therapy, or continues to need occupational therapy.~ This patient is under my care, and I have initiated the establishment of the plan of care.~ This patient will be followed by myself or a community physician who will periodically review the plan of care. Home Meds Active Scripts Lactobacillus Rhamnosus Gg (CULTURELLE) 1 Each Cap.sprink, 1 CAP PO BID for Diarrhea for 30 Days, #60 CAP Prov:TRINH CHARLES MD 12/16/19 Zinc Sulfate (ORAZINC) 220 Mg Capsule, 220 MG PO DAILY for COVID 19 for 30 Days, #30 CAP Prov:TRINH CHARLES MD 12/16/19 Azithromycin (AZITHROMYCIN TABLET) 250 Mg Tablet, 250 MG PO DAILY for COVID 19 for 2 Days, #2 TAB Prov:TRINH CHARLES MD 12/16/19 Reported Medications Info (NO KNOWN MEDICATIONS PRIOR TO ADMISSTION) Each, 1 EACH 1X for none, EACH 12/14/19 TRINH CHARLES MD December 16, 2019 13:51
--- NOTE | 2019-12-16 14:03 | NUR ---
SS following for discharge planning. Discharge order received for home with home healthcare. [facility], ; fax [phone], agreeable to [facility] wellness and safety checks in home. SS provided [facility] with discharge orders and referral. Pt's daughter notified.
--- NOTE | 2019-12-16 14:15 | NUR ---
SS following up with discharge planning. Transportation to home scheduled between 1500 and 1530 with [facility] transportation. Pt's RN notified.
[2019-12-16 14:31] VITALS: BP 146/86
--- NOTE | 2019-12-16 15:52 | NUR ---
pt taken down to ER via w/c for pick pack worker through [email or web address]. meds and follow up reviewed. pt provided w/ covid education and mask. IV removed, cath intact. pt stable upon dc.
== END 2019-12-16 15:30 | disposition home health service (06) | DRG 871 ==
LOC: ER 19:57 → 6 SOUTH 23:22
PROVIDERS: ADMIT Internal Medicine; ATTEND Internal Medicine
DX: A41.89 Other specified sepsis (principal); E43 Unspecified severe protein-calorie malnutrition; J12.89 Other viral pneumonia; U07.1 COVID-19; Z68.21 Body mass index [BMI] 21.0-21.9, adult
CPT/HCPCS: 36415; 71045; 80048; 80053; 81001; 83880; 84484; 85025; 93005; J0696; J1650; J3475; G0378